=== PATIENT | female | born 1940 | race Caucasian/White ===

== ENCOUNTER → 2017-07-23 | Outpatient (CLI) | payer MEDICARE, OTHER ==
[~2017-07-23] MED LIST: ASPI81CH PO; Azor 5-20 MG T1 EACH PO; CEFU500T30 PO; CELECOXIB200 MG PO; CIPR500 PO; Cipro250 MG PO; DICL25ER PO; DULO60 PO; ERGO400 PO; FOLI400 PO; HEARTBURN RELI150 M1 PO; METO50ER PO; METO5A PO; Metoclopramide H5 MG PO; Nexium40 MG PO; OLME20 PO; OMEGA 3 KRILL PO; OXYB5 PO; Omeprazole20 M1 PO; Oxybutynin Chlo10 MG PO; Oxybutynin Chlo15 MG PO; PRAM.5 PO; PRAMIPEXOLE DIHY1 MG PO; PROC10 PO; PROM25 PO; PROP65 PO; VITAMIN B122500 MC1 PO; XARELTO15 MG PO
== END | disposition home or self-care (01) ==
LOC: LAB SHORT 07:47 → PLD 07:47
DX: D17.1 Benign lipomatous neoplasm of skin and subcutaneous tissue of trunk (principal); L72.0 Epidermal cyst
CPT/HCPCS: 88304

== ENCOUNTER → 2018-01-01 | Outpatient (CLI) | payer MEDICARE, OTHER ==
[~2018-01-01] MED LIST changes: -CEFU500T30 PO; -DICL25ER PO; -OXYB5 PO; -XARELTO15 MG PO
== END | disposition home or self-care (01) ==
LOC: PLD 12:37 → LAB SHORT 12:37
DX: D22.0 Melanocytic nevi of lip (principal); D48.5 Neoplasm of uncertain behavior of skin
CPT/HCPCS: 88305

== ENCOUNTER 2018-01-03 18:12 | Emergency (ER) | payer MEDICARE, OTHER ==
[~2018-01-03] VITALS: Ht 167.6 cm; Wt 90.7 kg
[~2018-01-03 18:12] MED LIST changes: -Oxybutynin Chlo15 MG PO; -PROM25 PO
[2018-01-03 18:42] LABS: BASOPHILS ABSOLUTE AUTO 0.04 K/mm3 (0.00-0.23); BASOPHILS PERCENT AUTO 0 % (0-2); EOSINOPHILS PERCENT AUTO 0 % (0-6); Hematocrit 42.2 % (33.0-51.0); Hemoglobin 13.9 g/dL (11.5-16.0); IMMATURE GRAN ABSOLUTE AUTO 0.03 K/mm3 (0.00-0.10); IMMATURE GRAN PERCENT AUTO 0 % (0-1); LYMPHOCYTES ABSOLUTE AUTO 1.77 K/mm3 (0.84-5.20); LYMPHOCYTES PERCENT AUTO 20 % (21-46); MONOCYTES ABSOLUTE AUTO 0.41 K/mm3 (0.16-1.47); MONOCYTES PERCENT AUTO 5 % (4-13); Mean Corpuscular HGB Conc 32.9 g/dL (31.5-36.5); Mean Corpuscular Volume 94 fL (80-100); Mean Platelet Volume 10.3 fL (9.1-12.4); NEUTROPHILS ABSOLUTE AUTO 6.84 K/mm3 (1.96-9.15); NEUTROPHILS PERCENT AUTO 75 % (41-73); Platelet Count 221 K/mm3 (150-400); RDW Coefficient Variation 12.8 % (11.7-14.2); RDW Standard Deviation 44.1 fL (35.1-46.3); Red Blood Cell Count 4.49 M/mm3 (3.80-5.20); White Blood Cell Count 9.09 K/mm3 (4.00-11.30)
[2018-01-03 18:54] LABS: Alanine Aminotransfer (ALT/SGP 40 U/L (12-78); Albumin, Blood 3.6 g/dL (3.4-5.0); Alk Phos 107 U/L (50-136); Anion Gap 12 mmol/L (6-16); Aspartate Aminotrans (AST/SGOT 23 U/L (12-37); Bilirubin, Total 0.6 mg/dL (0.1-1.0); Blood Urea Nitrogen 16 mg/dL (8-24); Bun/Creatinine Ratio 29.5 (12.0-20.0); CO2, Blood 24 mmol/L (21-32); Calcium, Blood 9.4 mg/dL (8.5-10.1); Chloride, Blood 106 mmol/L (98-108); Creatinine, Blood 0.54 mg/dL (0.40-1.00); Globulin, Blood 3.7 g/dL (2.2-4.0); Glomerular Filtration Rate >60 (60-); Glucose, Blood 157 mg/dL (70-99); Potassium, Blood 3.7 mmol/L (3.5-5.5); Sodium, Blood 142 mmol/L (136-145); Total Protein, Blood 7.3 g/dL (6.4-8.2)
[2018-01-03] MEDS ORDERED: Oxybutynin Chlo15 MG PO (21:35)
[2018-01-03] MEDS ORDERED: PROM25 PO (22:03)
== END 2018-01-03 22:18 | disposition home or self-care (01) ==
LOC: ER 18:12
PROVIDERS: Emergency Medicine
DX: R11.2 Nausea with vomiting, unspecified (principal); Z88.8 Allergy status to other drugs, medicaments and biological substances; Z88.5 Allergy status to narcotic agent; Z79.899 Other long term (current) drug therapy; Z79.82 Long term (current) use of aspirin; E66.9 Obesity, unspecified; I10 Essential (primary) hypertension; K21.9 Gastro-esophageal reflux disease without esophagitis; Z68.32 Body mass index [BMI] 32.0-32.9, adult
CPT/HCPCS: 80053; 85025; 96361; 96374; 96375; 99283; J2405; J2550; J7030

== ENCOUNTER → 2018-01-28 | Outpatient (CLI) | payer MEDICARE, OTHER ==
[~2018-01-28] MED LIST changes: +Oxybutynin Chlo15 MG PO; +PROM25 PO
== END | disposition home or self-care (01) ==
LOC: LAB SHORT 14:31 → PLD 14:31
DX: L72.0 Epidermal cyst (principal)
CPT/HCPCS: 88304

== ENCOUNTER 2018-02-10 13:46 | Inpatient (IN) | payer MEDICARE, OTHER ==
[~2018-02-10] VITALS: Ht 167.6 cm; Wt 87.4 kg
[2018-02-10] MEDS ORDERED: Azor 5-20 MG T1 EACH PO ×2 (14:04→18:31)
[2018-02-10] MEDS ORDERED: PRAM.5 PO (14:05)
[2018-02-10] MEDS ORDERED: OXYB5 PO (14:05)
[2018-02-10] MEDS ORDERED: DICL25ER PO (14:05)
[2018-02-10 14:10] LABS: BASOPHILS ABSOLUTE AUTO 0.05 K/mm3 (0.00-0.23); BASOPHILS PERCENT AUTO 1 % (0-2); EOSINOPHILS ABSOLUTE AUTO 0.12 K/mm3 (0.00-0.68); EOSINOPHILS PERCENT AUTO 1 % (0-6); Hematocrit 40.1 % (33.0-51.0); Hemoglobin 13.2 g/dL (11.5-16.0); IMMATURE GRAN ABSOLUTE AUTO 0.02 K/mm3 (0.00-0.10); IMMATURE GRAN PERCENT AUTO 0 % (0-1); LYMPHOCYTES ABSOLUTE AUTO 2.22 K/mm3 (0.84-5.20); LYMPHOCYTES PERCENT AUTO 24 % (21-46); MONOCYTES ABSOLUTE AUTO 0.67 K/mm3 (0.16-1.47); MONOCYTES PERCENT AUTO 7 % (4-13); Mean Corpuscular HGB 30.9 pg (26.0-34.0); Mean Corpuscular HGB Conc 32.9 g/dL (31.5-36.5); Mean Corpuscular Volume 94 fL (80-100); Mean Platelet Volume 10.5 fL (9.1-12.4); NEUTROPHILS ABSOLUTE AUTO 6.05 K/mm3 (1.96-9.15); NEUTROPHILS PERCENT AUTO 66 % (41-73); Platelet Count 197 K/mm3 (150-400); RDW Coefficient Variation 13.4 % (11.7-14.2); RDW Standard Deviation 45.9 fL (35.1-46.3); Red Blood Cell Count 4.27 M/mm3 (3.80-5.20); White Blood Cell Count 9.13 K/mm3 (4.00-11.30)
[2018-02-10 14:29] LABS: Alanine Aminotransfer (ALT/SGP 37 U/L (12-78); Albumin, Blood 3.5 g/dL (3.4-5.0); Albumin/Globulin Ratio 0.9 (0.8-1.8); Alk Phos 110 U/L (50-136); Anion Gap 11 mmol/L (6-16); Aspartate Aminotrans (AST/SGOT 22 U/L (12-37); Bilirubin, Total 0.7 mg/dL (0.1-1.0); Blood Urea Nitrogen 14 mg/dL (8-24); Bun/Creatinine Ratio 19.6 (12.0-20.0); CO2, Blood 23 mmol/L (21-32); Calcium, Blood 9.1 mg/dL (8.5-10.1); Chloride, Blood 108 mmol/L (98-108); Creatinine, Blood 0.72 mg/dL (0.40-1.00); Globulin, Blood 3.7 g/dL (2.2-4.0); Glomerular Filtration Rate >60 (60-); Glucose, Blood 111 mg/dL (70-99); Potassium, Blood 3.8 mmol/L (3.5-5.5); Sodium, Blood 142 mmol/L (136-145); Total Protein, Blood 7.2 g/dL (6.4-8.2)
[2018-02-10 17:46] LABS: International Normalized Ratio 1.04; Prothrombin Time Results 10.7 Sec (9.7-11.5)
[2018-02-10 19:21] LABS: Source, Urine Clean Catch
[2018-02-10 19:23] LABS: Bilirubin, Urine Neg (Neg); Blood, Urine 1+ (Neg); Glucose Qualitative, Urine Neg (Neg); Ketones, Urine Neg (Neg); Leukocyte Esterase, Urine 1+ (Neg); Nitrite, Urine Neg (Neg); Protein, Urine Neg (Neg); Urobilinogen, Urine NORM (Normal)
[2018-02-10 19:26] LABS: Appearance, Urine Clear (Clear); Color, Urine Yellow (P-Yellow)
[2018-02-10 19:29] LABS: Bacteria Many /hpf; Red Blood Cells, Urine 0-2 /hpf (0-2); Squamous Epithelial Cells Few /hpf (Few)
[2018-02-11 00:37] LABS: Hematocrit 36.5 % (33.0-51.0); Hemoglobin 12.2 g/dL (11.5-16.0); Mean Corpuscular HGB 31.3 pg (26.0-34.0); Mean Corpuscular HGB Conc 33.4 g/dL (31.5-36.5); Mean Corpuscular Volume 94 fL (80-100); Mean Platelet Volume 10.6 fL (9.1-12.4); Platelet Count 168 K/mm3 (150-400); RDW Coefficient Variation 13.5 % (11.7-14.2); RDW Standard Deviation 45.5 fL (35.1-46.3); White Blood Cell Count 7.58 K/mm3 (4.00-11.30)
[2018-02-11 15:14] LABS: International Normalized Ratio 1.07
[2018-02-13 04:21] LABS: Hematocrit 37.4 % (33.0-51.0); Hemoglobin 12.4 g/dL (11.5-16.0)
[2018-02-13] MEDS ORDERED: XARELTO15 MG PO (14:02)
[2018-02-13] MEDS ORDERED: CEFU500T30 PO (14:02)
== END 2018-02-13 14:45 | disposition home or self-care (01) | DRG 175 ==
LOC: ER 13:46 → PCU 17:23
PROVIDERS: Internal Medicine; Internal Medicine Gastroenterology; Nurse Practitioner Acute Care; Pharmacist; Physician Assistant
PROC: 0DJ08ZZ Inspection of Upper Intestinal Tract, Via Natural or Artificial Opening Endoscopic (ICD-10-PCS; principal; 2018-02-12 16:30)
DX: I26.99 Other pulmonary embolism without acute cor pulmonale (principal); J96.01 Acute respiratory failure with hypoxia; K92.0 Hematemesis; N39.0 Urinary tract infection, site not specified; I10 Essential (primary) hypertension; K21.9 Gastro-esophageal reflux disease without esophagitis; N32.81 Overactive bladder; N39.3 Stress incontinence (female) (male); K44.9 Diaphragmatic hernia without obstruction or gangrene; B96.20 Unspecified Escherichia coli [E. coli] as the cause of diseases classified elsewhere; Z79.899 Other long term (current) drug therapy; Z87.891 Personal history of nicotine dependence; Z90.2 Acquired absence of lung [part of]; Z88.8 Allergy status to other drugs, medicaments and biological substances; Z88.5 Allergy status to narcotic agent; Z98.84 Bariatric surgery status; Z85.118 Personal history of other malignant neoplasm of bronchus and lung; Z79.82 Long term (current) use of aspirin
CPT/HCPCS: 36415; 71046; 71260; 80053; 81001; 85014; 85018; 85025; 85027; 85610; 85730; 87077; 87086; 87186; 93005; 93010; 93306; 99285-25; J1644; J3480; J7120; Q9967

== ENCOUNTER 2019-01-31 17:04 | Emergency (ER) | payer MEDICARE, OTHER ==
[~2019-01-31] VITALS: Ht 167.6 cm; Wt 95.2 kg
[~2019-01-31 17:04] MED LIST changes: +CEFU500T30 PO; +DICL25ER PO; +OXYB5 PO; +XARELTO15 MG PO
[2019-01-31 17:41] LABS: BASOPHILS ABSOLUTE AUTO 0.03 K/mm3 (0.00-0.23); BASOPHILS PERCENT AUTO 0 % (0-2); EOSINOPHILS ABSOLUTE AUTO 0.06 K/mm3 (0.00-0.68); EOSINOPHILS PERCENT AUTO 1 % (0-6); Hematocrit 42.8 % (33.0-51.0); Hemoglobin 14.4 g/dL (11.5-16.0); IMMATURE GRAN ABSOLUTE AUTO 0.02 K/mm3 (0.00-0.10); IMMATURE GRAN PERCENT AUTO 0 % (0-1); LYMPHOCYTES ABSOLUTE AUTO 2.48 K/mm3 (0.84-5.20); LYMPHOCYTES PERCENT AUTO 30 % (21-46); MONOCYTES ABSOLUTE AUTO 0.59 K/mm3 (0.16-1.47); MONOCYTES PERCENT AUTO 7 % (4-13); Mean Corpuscular HGB 30.9 pg (26.0-34.0); Mean Corpuscular HGB Conc 33.6 g/dL (31.5-36.5); Mean Corpuscular Volume 92 fL (80-100); Mean Platelet Volume 10.4 fL (9.1-12.4); NEUTROPHILS ABSOLUTE AUTO 5.01 K/mm3 (1.96-9.15); NEUTROPHILS PERCENT AUTO 61 % (41-73); Platelet Count 242 K/mm3 (150-400); RDW Coefficient Variation 12.6 % (11.7-14.2); RDW Standard Deviation 42.6 fL (35.1-46.3); Red Blood Cell Count 4.66 M/mm3 (3.80-5.20); White Blood Cell Count 8.19 K/mm3 (4.00-11.30)
[2019-01-31 18:09] LABS: Alanine Aminotransfer (ALT/SGP 28 U/L (12-78); Albumin, Blood 3.5 g/dL (3.4-5.0); Albumin/Globulin Ratio 0.9 (0.8-1.8); Alk Phos 95 U/L (50-136); Anion Gap 8 mmol/L (6-16); Aspartate Aminotrans (AST/SGOT 17 U/L (12-37); Bilirubin, Total 0.8 mg/dL (0.1-1.0); Blood Urea Nitrogen 12 mg/dL (8-24); Bun/Creatinine Ratio 18.9 (12.0-20.0); CO2, Blood 24 mmol/L (21-32); Calcium, Blood 10.4 mg/dL (8.5-10.1); Chloride, Blood 102 mmol/L (98-108); Creatinine, Blood 0.63 mg/dL (0.40-1.00); Globulin, Blood 3.8 g/dL (2.2-4.0); Glomerular Filtration Rate >60 (60-); Glucose, Blood 134 mg/dL (70-99); Potassium, Blood 3.7 mmol/L (3.5-5.5); Sodium, Blood 134 mmol/L (136-145); Total Protein, Blood 7.3 g/dL (6.4-8.2)
[2019-01-31] MEDS ORDERED: Diclofenac Sodi50 MG (18:49)
[2019-01-31 19:19] LABS: Source, Urine Clean Catch
[2019-01-31 19:22] LABS: Appearance, Urine Cloudy (Clear); Bilirubin, Urine Neg (Neg); Blood, Urine 2+ (Neg); Color, Urine Yellow (P-Yellow); Glucose Qualitative, Urine Neg (Neg); Ketones, Urine Neg (Neg); Leukocyte Esterase, Urine 3+ (Neg); Nitrite, Urine Neg (Neg); Protein, Urine 2+ (Neg); Urobilinogen, Urine NORM (Normal)
[2019-01-31 19:28] LABS: Bacteria Many /hpf; Red Blood Cells, Urine 0-2 /hpf (0-2); Squamous Epithelial Cells Mod /hpf (Few); White Blood Cells, Urine 50-100 /hpf (0-5)
[2019-01-31] MEDS ORDERED: Omeprazole20 M1 PO (19:48)
[2019-01-31] MEDS ORDERED: Cephalexin500 M1 PO (19:48)
[2019-01-31] MEDS ORDERED: PROM25 PO (19:52)
[2019-02-13] MEDS ORDERED: OMEP20ER PO (14:18)
[2019-02-13] MEDS ORDERED: Metoclopramide H5 MG PO (14:18)
[2019-02-13] MEDS ORDERED: Azor 5-20 MG T1 EACH PO (14:19)
[2019-02-13] MEDS ORDERED: Mirapex1 MG PO (14:19)
[2019-02-13] MEDS ORDERED: Oxybutynin Chlo15 MG PO (14:19)
[2019-02-13] MEDS ORDERED: Diclofenac Pota50 MG PO (14:20)
[2019-02-13] MEDS ORDERED: Aspirin EC81 MG PO (14:20)
[2019-02-13] MEDS ORDERED: Omega 3 1,0001 EACH PO (14:20)
== END 2019-01-31 20:47 | disposition home or self-care (01) ==
LOC: ER 17:04
PROVIDERS: Physician Assistant
DX: N39.0 Urinary tract infection, site not specified (principal); K92.0 Hematemesis; I10 Essential (primary) hypertension; K21.9 Gastro-esophageal reflux disease without esophagitis; Z87.891 Personal history of nicotine dependence
CPT/HCPCS: 36415; 74176; 80053; 81001; 82272; 83605; 83690; 85025; 87077; 87086; 87186; 96361; 96365; 96375; 99284-25; C9113; J0696; J1200; J2550; J7030

== ENCOUNTER 2019-02-21 07:51 | Day surgery (SDC) | payer MEDICARE, OTHER ==
[~2019-02-21] VITALS: Ht 167.6 cm; Wt 97.8 kg
[~2019-02-21 07:51] MED LIST changes: +Aspirin EC81 MG PO; +Cephalexin500 M1 PO; +Diclofenac Pota50 MG PO; +Diclofenac Sodi50 MG; +Mirapex1 MG PO; +OMEP20ER PO; +Omega 3 1,0001 EACH PO
--- NOTE | 2019-02-21 08:41 | NUR ---
02/21/19 0841 VANDA FIELD 1 IV ATTEMPT BY IRA VEIN BLEW 2 IV ATTEMPT BY PARVIN SUCCESSFUL
--- NOTE | 2019-02-21 09:24 | NUR ---
02/21/19 0924 Julio Jiménez PROCEDURE ABORTED D/T FOOD IN STOMACH PER DR. BADILLO.
== END 2019-02-21 09:53 | disposition home or self-care (01) ==
LOC: ORSCSDS 07:51
PROVIDERS: Internal Medicine Gastroenterology
PROC: 0DJ08ZZ Inspection of Upper Intestinal Tract, Via Natural or Artificial Opening Endoscopic (ICD-10-PCS; principal; 2019-02-21 09:00)
DX: K92.0 Hematemesis (principal); K22.4 Dyskinesia of esophagus; R13.10 Dysphagia, unspecified; R10.9 Unspecified abdominal pain; R93.3 Abnormal findings on diagnostic imaging of other parts of digestive tract; Z86.711 Personal history of pulmonary embolism; I10 Essential (primary) hypertension; Z86.73 Personal history of transient ischemic attack (TIA), and cerebral infarction without residual deficits; Z87.891 Personal history of nicotine dependence; Z85.118 Personal history of other malignant neoplasm of bronchus and lung; Z79.82 Long term (current) use of aspirin; Z79.899 Other long term (current) drug therapy
CPT/HCPCS: J0461; J2405; J2704; J7120

== ENCOUNTER 2019-02-26 08:01 | Day surgery (SDC) | payer MEDICARE, OTHER ==
[~2019-02-26] VITALS: Ht 167.6 cm; Wt 97.8 kg
== END 2019-02-26 10:00 | disposition home or self-care (01) ==
LOC: ORSCSDS 08:01
PROVIDERS: Internal Medicine Gastroenterology
PROC: 0DB58ZX Excision of Esophagus, Via Natural or Artificial Opening Endoscopic, Diagnostic (ICD-10-PCS; principal; 2019-02-26 09:15)
PROC: 0DB98ZX Excision of Duodenum, Via Natural or Artificial Opening Endoscopic, Diagnostic (ICD-10-PCS; principal; 2019-02-26 09:15)
PROC: 0DB68ZX Excision of Stomach, Via Natural or Artificial Opening Endoscopic, Diagnostic (ICD-10-PCS; principal; 2019-02-26 09:15)
DX: K92.0 Hematemesis (principal); K22.70 Barrett's esophagus without dysplasia; K29.80 Duodenitis without bleeding; K44.9 Diaphragmatic hernia without obstruction or gangrene; R93.3 Abnormal findings on diagnostic imaging of other parts of digestive tract; Z86.711 Personal history of pulmonary embolism; I10 Essential (primary) hypertension; Z86.73 Personal history of transient ischemic attack (TIA), and cerebral infarction without residual deficits; Z87.891 Personal history of nicotine dependence
CPT/HCPCS: 88305; 88342; J0330; J0461; J2001; J2405; J2704; J2765; J7120

== ENCOUNTER → 2019-03-25 | Outpatient (CLI) | payer MEDICARE, OTHER | END | disposition home or self-care (01) | LOC: LAB SHORT 11:59 → LAB 11:59 | DX: R10.9 Unspecified abdominal pain (principal); N39.0 Urinary tract infection, site not specified | CPT/HCPCS: 87077; 87086; 87186 ==

== ENCOUNTER → 2019-08-08 | Outpatient (CLI) | payer MEDICARE, OTHER ==
[~2019-08-08] MED LIST changes: +CEPH500 PO; +Nitrofurantoin50 MG PO
== END | disposition home or self-care (01) ==
LOC: LAB SHORT 10:30 → LAB 10:30
DX: R82.79 Other abnormal findings on microbiological examination of urine (principal)
CPT/HCPCS: 87077; 87086; 87186

== ENCOUNTER → 2019-10-02 | Outpatient (CLI) | payer MEDICARE, OTHER | END | disposition home or self-care (01) | LOC: LAB 11:45 → LAB SHORT 11:45 | DX: N39.41 Urge incontinence (principal); R82.79 Other abnormal findings on microbiological examination of urine | CPT/HCPCS: 87077; 87086; 87186 ==

== ENCOUNTER 2020-04-24 00:57 | Inpatient (IN) | payer MEDICARE, OTHER ==
[~2020-04-24] VITALS: Ht 167.6 cm; Wt 91.7 kg
[~2020-04-24 00:57] MED LIST changes: +CEFU250T47 PO
[2020-04-24 01:28] LABS: BASOPHILS ABSOLUTE AUTO 0.03 K/mm3 (0.00-0.23); BASOPHILS PERCENT AUTO 0 % (0-2); EOSINOPHILS ABSOLUTE AUTO 0.08 K/mm3 (0.00-0.68); EOSINOPHILS PERCENT AUTO 1 % (0-6); Hematocrit 40.1 % (33.0-51.0); Hemoglobin 12.9 g/dL (11.5-16.0); IMMATURE GRAN ABSOLUTE AUTO 0.02 K/mm3 (0.00-0.10); IMMATURE GRAN PERCENT AUTO 0 % (0-1); LYMPHOCYTES ABSOLUTE AUTO 1.85 K/mm3 (0.84-5.20); LYMPHOCYTES PERCENT AUTO 26 % (21-46); MONOCYTES ABSOLUTE AUTO 0.52 K/mm3 (0.16-1.47); MONOCYTES PERCENT AUTO 7 % (4-13); Mean Corpuscular HGB Conc 32.2 g/dL (31.5-36.5); Mean Corpuscular Volume 96 fL (80-100); Mean Platelet Volume 10.1 fL (9.1-12.4); NEUTROPHILS ABSOLUTE AUTO 4.74 K/mm3 (1.96-9.15); NEUTROPHILS PERCENT AUTO 65 % (41-73); Platelet Count 225 K/mm3 (150-400); RDW Coefficient Variation 12.7 % (11.7-14.2); RDW Standard Deviation 45.2 fL (35.1-46.3); Red Blood Cell Count 4.16 M/mm3 (3.80-5.20); White Blood Cell Count 7.24 K/mm3 (4.00-11.30)
[2020-04-24 01:43] LABS: International Normalized Ratio 1.03
[2020-04-24 01:48] LABS: Alanine Aminotransfer (ALT/SGP 21 U/L (12-78); Albumin, Blood 3.4 g/dL (3.4-5.0); Alk Phos 86 U/L (50-136); Anion Gap 6 mmol/L (6-16); Aspartate Aminotrans (AST/SGOT 17 U/L (12-37); Bilirubin, Total 0.8 mg/dL (0.1-1.0); Blood Urea Nitrogen 10 mg/dL (8-24); Bun/Creatinine Ratio 17.9 (12.0-20.0); CO2, Blood 27 mmol/L (21-32); Calcium, Blood 9.8 mg/dL (8.5-10.1); Chloride, Blood 106 mmol/L (98-108); Creatinine, Blood 0.56 mg/dL (0.40-1.00); Globulin, Blood 3.5 g/dL (2.2-4.0); Glomerular Filtration Rate >60 (60-); Glucose, Blood 141 mg/dL (70-99); Potassium, Blood 3.8 mmol/L (3.5-5.5); Sodium, Blood 139 mmol/L (136-145); Total Protein, Blood 6.9 g/dL (6.4-8.2); Troponin I <0.015 ng/mL (0.000-0.040)
[2020-04-24 02:31] LABS: Source, Urine Clean Catch
[2020-04-24 02:33] LABS: Bilirubin, Urine Neg (Neg); Blood, Urine 2+ (Neg); Glucose Qualitative, Urine Neg (Neg); Ketones, Urine 2+ (Neg); Leukocyte Esterase, Urine 3+ (Neg); Nitrite, Urine Neg (Neg); Protein, Urine Neg (Neg); Specific Gravity, Urine 1.025 (1.003-1.022); Urobilinogen, Urine NORM (Normal)
[2020-04-24 02:37] LABS: Appearance, Urine Hazy (Clear); Color, Urine Pale Yellow (P-Yellow)
[2020-04-24 02:41] LABS: Red Blood Cells, Urine Rare /hpf (0-2); White Blood Cells, Urine TNTC /hpf (0-5)
[2020-04-24 02:42] LABS: Bacteria Many /hpf; Squamous Epithelial Cells Mod /hpf (Few)
[2020-04-24] MEDS ORDERED: ASPI325 PO (04:34)
[2020-04-24] MEDS ORDERED: ZINC15 PO (04:38)
[2020-04-24] MEDS ORDERED: Vitamin D2000 UNIT PO (04:38)
[2020-04-24] MEDS ORDERED: B-121000 MC3 PO (04:40)
[2020-04-24 07:21] LABS: BASOPHILS ABSOLUTE AUTO 0.03 K/mm3 (0.00-0.23); BASOPHILS PERCENT AUTO 0 % (0-2); EOSINOPHILS ABSOLUTE AUTO 0.05 K/mm3 (0.00-0.68); EOSINOPHILS PERCENT AUTO 1 % (0-6); Hematocrit 37.9 % (33.0-51.0); Hemoglobin 12.1 g/dL (11.5-16.0); IMMATURE GRAN ABSOLUTE AUTO 0.03 K/mm3 (0.00-0.10); IMMATURE GRAN PERCENT AUTO 0 % (0-1); LYMPHOCYTES ABSOLUTE AUTO 1.84 K/mm3 (0.84-5.20); LYMPHOCYTES PERCENT AUTO 27 % (21-46); MONOCYTES ABSOLUTE AUTO 0.51 K/mm3 (0.16-1.47); MONOCYTES PERCENT AUTO 7 % (4-13); Mean Corpuscular HGB 31.1 pg (26.0-34.0); Mean Corpuscular HGB Conc 31.9 g/dL (31.5-36.5); Mean Corpuscular Volume 97 fL (80-100); NEUTROPHILS ABSOLUTE AUTO 4.46 K/mm3 (1.96-9.15); NEUTROPHILS PERCENT AUTO 65 % (41-73); Platelet Count 208 K/mm3 (150-400); RDW Coefficient Variation 12.9 % (11.7-14.2); RDW Standard Deviation 46.1 fL (35.1-46.3); Red Blood Cell Count 3.89 M/mm3 (3.80-5.20); White Blood Cell Count 6.92 K/mm3 (4.00-11.30)
[2020-04-24 07:39] LABS: Alanine Aminotransfer (ALT/SGP 20 U/L (12-78); Albumin/Globulin Ratio 0.9 (0.8-1.8); Alk Phos 78 U/L (50-136); Anion Gap 4 mmol/L (6-16); Aspartate Aminotrans (AST/SGOT 17 U/L (12-37); Bilirubin, Total 0.6 mg/dL (0.1-1.0); Blood Urea Nitrogen 10 mg/dL (8-24); Bun/Creatinine Ratio 18.1 (12.0-20.0); CO2, Blood 29 mmol/L (21-32); Calcium, Blood 9.1 mg/dL (8.5-10.1); Chloride, Blood 107 mmol/L (98-108); Creatinine, Blood 0.55 mg/dL (0.40-1.00); Globulin, Blood 3.4 g/dL (2.2-4.0); Glomerular Filtration Rate >60 (60-); Glucose, Blood 91 mg/dL (70-99); Potassium, Blood 3.8 mmol/L (3.5-5.5); Sodium, Blood 140 mmol/L (136-145); Total Protein, Blood 6.4 g/dL (6.4-8.2)
--- NOTE | 2020-04-24 07:45 | NUR ---
IRRIGATION FLUME LAYER SUMMARY Patient arrived to room 310 via wheelchair and was able to stand and step over to bed without difficulty. No further emesis after arrival to floor. No complaint of discomfort. Patient slept most of morning after admission. Tele reveals Sinus Rhythm in the 70's
[2020-04-24 13:18] LABS: Hematocrit 35.3 % (33.0-51.0); Hemoglobin 11.3 g/dL (11.5-16.0)
[2020-04-24] MEDS ORDERED: AMOX500 PO (14:27)
--- NOTE | 2020-04-24 14:49 | NUR ---
discharge summary patient is pelasant, alert and oriented. denies any concern at the time. iv removed. denies any pain or discomfort. reports that she wanted [facility] medications to [facility]. medications sent to pharmacy of choice. patient's spouse awaiting her in the car. taken by wheelchair to the car by [facility].
--- NOTE | 2020-04-24 15:27 | NUR ---
PT DISCHARGED FROM THE UNIT. IV REMOVED. DISCHARGE INSTRUCTIONS REVIEWED. MEDICATIONS FAXED TO PHARMACY. PT LEFT UNIT VIA WHEEL CHAIR WITH
== END 2020-04-24 15:00 | disposition home or self-care (01) | DRG 378 ==
LOC: ER 00:57 → MEDS 02:50
PROVIDERS: Emergency Medicine; ADMIT Internal Medicine
PROC: 3E0234Z Introduction of Serum, Toxoid and Vaccine into Muscle, Percutaneous Approach (ICD-10-PCS; principal; 2020-04-24)
DX: K92.2 Gastrointestinal hemorrhage, unspecified (principal); N39.0 Urinary tract infection, site not specified; R11.10 Vomiting, unspecified; Z23 Encounter for immunization; K21.9 Gastro-esophageal reflux disease without esophagitis; I10 Essential (primary) hypertension; M19.90 Unspecified osteoarthritis, unspecified site; Z86.718 Personal history of other venous thrombosis and embolism; Z88.8 Allergy status to other drugs, medicaments and biological substances; Z79.82 Long term (current) use of aspirin; Z87.891 Personal history of nicotine dependence; Z86.73 Personal history of transient ischemic attack (TIA), and cerebral infarction without residual deficits; Z87.440 Personal history of urinary (tract) infections; Z85.118 Personal history of other malignant neoplasm of bronchus and lung
CPT/HCPCS: 36415; 80053; 81001; 83605; 84484; 85014; 85018; 85025; 85610; 86850; 86900; 86901; 93005; 93010; C9113; J0696; J2405; J7030; Q2038

== ENCOUNTER → 2020-06-01 | Outpatient (CLI) | payer MEDICARE, OTHER ==
[~2020-06-01] MED LIST changes: +AMOX500 PO; +ASPI325 PO; +B-121000 MC3 PO; +MAGCIT300 PO; +Vitamin D2000 UNIT PO; +XARELTO20 MG PO; +ZINC15 PO
== END | disposition home or self-care (01) ==
LOC: LAB 15:33
DX: N39.0 Urinary tract infection, site not specified (principal); R31.9 Hematuria, unspecified; R30.0 Dysuria
CPT/HCPCS: 87077; 87086; 87186

== ENCOUNTER 2020-07-20 10:07 | Emergency (ER) | payer MEDICARE, OTHER ==
[~2020-07-20] VITALS: Ht 167.6 cm; Wt 90.7 kg
[~2020-07-20 10:07] MED LIST changes: -MAGCIT300 PO; -XARELTO20 MG PO
[2020-07-20] MEDS ORDERED: XARELTO20 MG PO (10:18)
[2020-07-20 10:36] LABS: BASOPHILS ABSOLUTE AUTO 0.03 K/mm3 (0.00-0.23); BASOPHILS PERCENT AUTO 1 % (0-2); EOSINOPHILS ABSOLUTE AUTO 0.07 K/mm3 (0.00-0.68); EOSINOPHILS PERCENT AUTO 1 % (0-6); Hemoglobin 13.2 g/dL (11.5-16.0); IMMATURE GRAN ABSOLUTE AUTO 0.02 K/mm3 (0.00-0.10); IMMATURE GRAN PERCENT AUTO 0 % (0-1); LYMPHOCYTES ABSOLUTE AUTO 1.85 K/mm3 (0.84-5.20); LYMPHOCYTES PERCENT AUTO 30 % (21-46); MONOCYTES ABSOLUTE AUTO 0.44 K/mm3 (0.16-1.47); MONOCYTES PERCENT AUTO 7 % (4-13); Mean Corpuscular HGB 30.5 pg (26.0-34.0); Mean Corpuscular HGB Conc 32.2 g/dL (31.5-36.5); Mean Corpuscular Volume 95 fL (80-100); Mean Platelet Volume 9.7 fL (9.1-12.4); NEUTROPHILS PERCENT AUTO 61 % (41-73); Platelet Count 191 K/mm3 (150-400); RDW Coefficient Variation 13.4 % (11.7-14.2); RDW Standard Deviation 47.1 fL (35.1-46.3); Red Blood Cell Count 4.33 M/mm3 (3.80-5.20); White Blood Cell Count 6.21 K/mm3 (4.00-11.30)
[2020-07-20 10:50] LABS: International Normalized Ratio 1.69; Prothrombin Time Results 17.6 Sec (9.7-11.5)
[2020-07-20 10:56] LABS: Alanine Aminotransfer (ALT/SGP 22 U/L (12-78); Albumin, Blood 3.1 g/dL (3.4-5.0); Albumin/Globulin Ratio 0.9 (0.8-1.8); Alk Phos 78 U/L (50-136); Anion Gap 7 mmol/L (6-16); Aspartate Aminotrans (AST/SGOT 8 U/L (12-37); Bilirubin, Total 0.6 mg/dL (0.1-1.0); Blood Urea Nitrogen 12 mg/dL (8-24); Bun/Creatinine Ratio 20.5 (12.0-20.0); CO2, Blood 25 mmol/L (21-32); Calcium, Blood 9.1 mg/dL (8.5-10.1); Chloride, Blood 110 mmol/L (98-108); Creatinine, Blood 0.58 mg/dL (0.40-1.00); Globulin, Blood 3.4 g/dL (2.2-4.0); Glomerular Filtration Rate >60 (60-); Glucose, Blood 117 mg/dL (70-99); Potassium, Blood 3.7 mmol/L (3.5-5.5); Sodium, Blood 142 mmol/L (136-145); Total Protein, Blood 6.5 g/dL (6.4-8.2)
== END 2020-07-20 12:13 | disposition home or self-care (01) ==
LOC: ER 10:07
PROVIDERS: Emergency Medicine
DX: G43.109 Migraine with aura, not intractable, without status migrainosus (principal); K21.9 Gastro-esophageal reflux disease without esophagitis; Z86.73 Personal history of transient ischemic attack (TIA), and cerebral infarction without residual deficits; Z79.899 Other long term (current) drug therapy; Z86.711 Personal history of pulmonary embolism; Z88.5 Allergy status to narcotic agent; Z88.8 Allergy status to other drugs, medicaments and biological substances; Z79.01 Long term (current) use of anticoagulants
CPT/HCPCS: 70450; 80053; 85025; 85610; 85730; 93005; 93010; 99284-25

== ENCOUNTER → 2020-08-23 | Outpatient (CLI) | payer MEDICARE, OTHER ==
[~2020-08-23] MED LIST changes: +MAGCIT300 PO; +XARELTO20 MG PO
== END ==
LOC: LAB SHORT 08:25 → PLD 08:25
DX: D48.5 Neoplasm of uncertain behavior of skin (principal); Z88.6 Allergy status to analgesic agent; Z88.5 Allergy status to narcotic agent; Z88.8 Allergy status to other drugs, medicaments and biological substances
CPT/HCPCS: 88304; 88311

== ENCOUNTER 2020-10-24 10:48 | Emergency (ER) | payer MEDICARE, OTHER ==
[~2020-10-24] VITALS: Ht 172.7 cm; Wt 83.9 kg
[~2020-10-24 10:48] MED LIST changes: -MAGCIT300 PO
[2020-10-24] MEDS ORDERED: MAGCIT300 PO (11:58)
== END 2020-10-24 12:20 | disposition home or self-care (01) ==
LOC: ER 10:48
DX: K59.00 Constipation, unspecified (principal); Z88.8 Allergy status to other drugs, medicaments and biological substances; Z88.5 Allergy status to narcotic agent; Z88.6 Allergy status to analgesic agent; K21.9 Gastro-esophageal reflux disease without esophagitis
CPT/HCPCS: 74176; 99284-25

== ENCOUNTER → 2020-11-08 | Outpatient (CLI) | payer MEDICARE, OTHER ==
[~2020-11-08] MED LIST changes: +MAGCIT300 PO
== END | disposition home or self-care (01) ==
LOC: LAB SHORT 08:33 → LAB 08:33
DX: D48.5 Neoplasm of uncertain behavior of skin (principal)
CPT/HCPCS: 88305

== ENCOUNTER → 2021-04-21 | Outpatient (CLI) | payer MEDICARE, OTHER | END | disposition home or self-care (01) | LOC: LAB SHORT 11:50 → LAB 11:50 | DX: N30.00 Acute cystitis without hematuria (principal); R11.0 Nausea | CPT/HCPCS: 87077; 87086; 87186 ==

== ENCOUNTER 2021-05-04 19:34 | Emergency (ER) | payer MEDICARE, OTHER ==
[~2021-05-04] VITALS: Ht 167.6 cm; Wt 83.9 kg
[2021-05-04 20:35] LABS: Appearance, Urine Hazy (Clear); Bilirubin, Urine Neg (Neg); Blood, Urine 2+ (Neg); Color, Urine Yellow (P-Yellow); Glucose Qualitative, Urine Neg (Neg); Ketones, Urine 1+ (Neg); Leukocyte Esterase, Urine 3+ (Neg); Nitrite, Urine Pos (Neg); Protein, Urine 1+ (Neg); Specific Gravity, Urine 1.025 (1.003-1.022); Urobilinogen, Urine NORM (Normal)
[2021-05-04 20:41] LABS: BASOPHILS ABSOLUTE AUTO 0.04 K/mm3 (0.00-0.23); BASOPHILS PERCENT AUTO 1 % (0-2); EOSINOPHILS ABSOLUTE AUTO 0.02 K/mm3 (0.00-0.68); EOSINOPHILS PERCENT AUTO 0 % (0-6); Hematocrit 37.2 % (33.0-51.0); Hemoglobin 12.4 g/dL (11.5-16.0); IMMATURE GRAN ABSOLUTE AUTO 0.02 K/mm3 (0.00-0.10); IMMATURE GRAN PERCENT AUTO 0 % (0-1); LYMPHOCYTES ABSOLUTE AUTO 1.11 K/mm3 (0.84-5.20); LYMPHOCYTES PERCENT AUTO 16 % (21-46); MONOCYTES ABSOLUTE AUTO 0.47 K/mm3 (0.16-1.47); MONOCYTES PERCENT AUTO 7 % (4-13); Mean Corpuscular HGB Conc 33.3 g/dL (31.5-36.5); Mean Corpuscular Volume 93 fL (80-100); Mean Platelet Volume 9.8 fL (9.1-12.4); NEUTROPHILS ABSOLUTE AUTO 5.38 K/mm3 (1.96-9.15); NEUTROPHILS PERCENT AUTO 76 % (41-73); Platelet Count 223 K/mm3 (150-400); RDW Coefficient Variation 12.5 % (11.7-14.2); RDW Standard Deviation 43.5 fL (35.1-46.3); White Blood Cell Count 7.04 K/mm3 (4.00-11.30)
[2021-05-04 20:58] LABS: Alanine Aminotransfer (ALT/SGP 20 U/L (12-78); Albumin, Blood 3.3 g/dL (3.4-5.0); Albumin/Globulin Ratio 0.9 (0.8-1.8); Alk Phos 98 U/L (50-136); Anion Gap 6 mmol/L (6-16); Aspartate Aminotrans (AST/SGOT 18 U/L (12-37); Bilirubin, Total 0.5 mg/dL (0.1-1.0); Blood Urea Nitrogen 20 mg/dL (8-24); Bun/Creatinine Ratio 32.6 (12.0-20.0); CO2, Blood 26 mmol/L (21-32); Calcium, Blood 9.5 mg/dL (8.5-10.1); Chloride, Blood 105 mmol/L (98-108); Creatinine, Blood 0.61 mg/dL (0.40-1.00); Globulin, Blood 3.5 g/dL (2.2-4.0); Glomerular Filtration Rate >60 (60-); Glucose, Blood 133 mg/dL (70-99); Potassium, Blood 3.9 mmol/L (3.5-5.5); Sodium, Blood 137 mmol/L (136-145); Total Protein, Blood 6.8 g/dL (6.4-8.2)
[2021-05-04 20:59] LABS: Bacteria Many /hpf; Red Blood Cells, Urine 0-2 /hpf (0-2); Squamous Epithelial Cells Mod /hpf (Few)
[2021-05-04 21:03] LABS: Source, Urine Clean Catch
== END 2021-05-04 23:58 | disposition home or self-care (01) ==
LOC: ER 19:34
PROVIDERS: Physician Assistant
DX: N39.0 Urinary tract infection, site not specified (principal); F41.9 Anxiety disorder, unspecified; T47.2X5A Adverse effect of stimulant laxatives, initial encounter; Z88.5 Allergy status to narcotic agent; Z88.8 Allergy status to other drugs, medicaments and biological substances; Z79.899 Other long term (current) drug therapy; G43.909 Migraine, unspecified, not intractable, without status migrainosus; K21.9 Gastro-esophageal reflux disease without esophagitis; M19.90 Unspecified osteoarthritis, unspecified site; Z86.711 Personal history of pulmonary embolism; Z86.73 Personal history of transient ischemic attack (TIA), and cerebral infarction without residual deficits
CPT/HCPCS: 36415; 80053; 81001; 85025; 87077; 87086; 87186; 93005; 93010; 96365; 96375; 99284-25; J0696; J2060; J7030

== ENCOUNTER → 2021-06-07 | Outpatient (CLI) | payer MEDICARE, OTHER | END | disposition home or self-care (01) | LOC: LAB 12:28 → LAB SHORT 12:28 | DX: N39.0 Urinary tract infection, site not specified (principal) | CPT/HCPCS: 87077; 87086; 87186 ==

== ENCOUNTER 2021-09-15 09:15 | Emergency (ER) | payer MEDICARE, OTHER ==
[~2021-09-15] VITALS: Ht 167.6 cm; Wt 83.5 kg
== END 2021-09-15 11:26 | disposition home or self-care (01) ==
LOC: ER 09:15
DX: F41.9 Anxiety disorder, unspecified (principal); T48.6X5A Adverse effect of antiasthmatics, initial encounter; K21.9 Gastro-esophageal reflux disease without esophagitis; Z79.899 Other long term (current) drug therapy; Z88.5 Allergy status to narcotic agent; Z88.8 Allergy status to other drugs, medicaments and biological substances
CPT/HCPCS: 93005; 93010; 96374; 99283-25; J2060

== ENCOUNTER 2022-02-13 08:56 | Day surgery (SDC) | payer MEDICARE, OTHER ==
--- NOTE | 2022-02-13 10:19 | NUR ---
PT PREPPED FOR CTA IN IMAGING PT PREP ROOM PER PROTOCOL, 20G IV STARTED X 1, PT CRISSY WELL. CALCIUM SCORING > 400, REST OF CTA ABORTED PER RADIOLOGIST, PT VS WNL, 20G IV DC'D INTACT, PT DRESSED, AMBULATES WELL OUT OF IMAGING UNIT. SINUS 60-70'S
== END 2022-02-13 22:59 | disposition home or self-care (01) ==
LOC: CT 08:56
DX: I25.10 Atherosclerotic heart disease of native coronary artery without angina pectoris (principal); I10 Essential (primary) hypertension; Z86.73 Personal history of transient ischemic attack (TIA), and cerebral infarction without residual deficits
CPT/HCPCS: 75571

== ENCOUNTER 2022-02-23 16:01 | Emergency (ER) | payer MEDICARE, OTHER ==
[~2022-02-23] VITALS: Ht 177.8 cm; Wt 83.9 kg
== END 2022-02-23 18:04 | disposition home or self-care (01) ==
LOC: ER 16:01
DX: G43.909 Migraine, unspecified, not intractable, without status migrainosus (principal); Z86.711 Personal history of pulmonary embolism; Z86.73 Personal history of transient ischemic attack (TIA), and cerebral infarction without residual deficits; Z79.899 Other long term (current) drug therapy; Z88.5 Allergy status to narcotic agent; Z88.8 Allergy status to other drugs, medicaments and biological substances; Z79.01 Long term (current) use of anticoagulants
CPT/HCPCS: 36415; J1200; J1885; J2765; J7030

== ENCOUNTER 2022-03-01 08:24 | Observation (INO) | payer MEDICARE, OTHER ==
[~2022-03-01] VITALS: Ht 167.6 cm; Wt 82.5 kg
[2022-03-01 09:14] LABS: BASOPHILS ABSOLUTE AUTO 0.05 K/mm3 (0.00-0.23); BASOPHILS PERCENT AUTO 1 % (0-2); EOSINOPHILS ABSOLUTE AUTO 0.14 K/mm3 (0.00-0.68); EOSINOPHILS PERCENT AUTO 2 % (0-6); Hematocrit 40.4 % (33.0-51.0); Hemoglobin 13.3 g/dL (11.5-16.0); IMMATURE GRAN ABSOLUTE AUTO 0.01 K/mm3 (0.00-0.10); IMMATURE GRAN PERCENT AUTO 0 % (0-1); LYMPHOCYTES ABSOLUTE AUTO 3.53 K/mm3 (0.84-5.20); LYMPHOCYTES PERCENT AUTO 46 % (21-46); MONOCYTES ABSOLUTE AUTO 0.57 K/mm3 (0.16-1.47); MONOCYTES PERCENT AUTO 8 % (4-13); Mean Corpuscular HGB 30.4 pg (26.0-34.0); Mean Corpuscular HGB Conc 32.9 g/dL (31.5-36.5); Mean Corpuscular Volume 92 fL (80-100); Mean Platelet Volume 10.3 fL (9.1-12.4); NEUTROPHILS ABSOLUTE AUTO 3.33 K/mm3 (1.96-9.15); NEUTROPHILS PERCENT AUTO 44 % (41-73); Platelet Count 232 K/mm3 (150-400); RDW Coefficient Variation 12.7 % (11.7-14.2); RDW Standard Deviation 42.9 fL (35.1-46.3); Red Blood Cell Count 4.38 M/mm3 (3.80-5.20); White Blood Cell Count 7.63 K/mm3 (4.00-11.30)
[2022-03-01 09:31] LABS: Albumin, Blood 3.5 g/dL (3.4-5.0); Bilirubin, Total 0.6 mg/dL (0.1-1.0); Bun/Creatinine Ratio 26.1 (12.0-20.0); Calcium, Blood 10.3 mg/dL (8.5-10.1); Creatinine, Blood 0.69 mg/dL (0.40-1.00); Globulin, Blood 3.5 g/dL (2.2-4.0); Potassium, Blood 3.8 mmol/L (3.5-5.5)
[2022-03-01 09:46] LABS: Ethanol (Alcohol), Blood, Med <3 mg/dL; Magnesium, Blood 2.3 mg/dL (1.6-2.4); Prolactin 40.1 ng/mL (2.74-19.64)
[2022-03-01 09:54] LABS: Source, Urine Straight Cath
[2022-03-01 10:09] LABS: Appearance, Urine Hazy (Clear); Bilirubin, Urine Neg (Neg); Blood, Urine 1+ (Neg); Color, Urine Yellow (P-Yellow); Glucose Qualitative, Urine Neg (Neg); Ketones, Urine Neg (Neg); Leukocyte Esterase, Urine 1+ (Neg); Nitrite, Urine Neg (Neg); Protein, Urine Neg (Neg); Urobilinogen, Urine NORM (Normal)
[2022-03-01 10:18] LABS: Influenza A, PCR NEGATIVE (NEGATIVE); Influenza B, PCR NEGATIVE (NEGATIVE); Resp Syncytial Virus, PCR NEGATIVE (NEGATIVE); SARS-Cov-2 (COVID-19) PCR, MMC NEGATIVE (NEGATIVE)
[2022-03-01 10:31] LABS: Bacteria Many /hpf; Red Blood Cells, Urine 0-2 /hpf (0-2); Squamous Epithelial Cells Rare /hpf (Few)
[2022-03-01 10:33] LABS: Base Excess Venous 3.5 mmol/L; Bicarbonate Venous 26.9 mmol/L (24.0-30.0); PCO2 Venous 37.9 mmHg (38-42); pH Blood Venous 7.47 (7.34-7.37)
--- NOTE | 2022-03-01 13:54 | NUR ---
ADMISSON NOTE RECEIVED REPORT FROM ER, PT SHORTLY AFTER ARRIVED IN ROOM 330. PT'S VSS STABLE AND COMPARABLE TO HOW THEY WERE IN THE ER. BP IS ELEVATED AND PT COMPLAINS OF HEADACHE. MD FULLY AWARE OF PT'S CONDITION. PT MAINTAINS SPO2 >94% ON RA WITH NO SOB OR DYSPNEA NOTED. NADN UPON ARRIVAL. SEE ADMISSION ASSESSMENT FOR MORE DETAILS
--- NOTE | 2022-03-01 16:05 | NUR ---
SPOKE WITH CARLOS A RAPP IN THE ED ABOUT PT'S FLUID ORDER REGARDING THE RATE OF 200ML/HR WELL THE AMOUNT OF FLUIDS. PT HAS BEEN HAVING FREQUENT VOIDS WELL INCREASED BP SINCE HER ADMISSION. TAMELA WANTED THE ORDER TO BE LEFT UNCHANGED. WILL CONTINUE TO MONITOR THE PT.
--- NOTE | 2022-03-01 17:58 | NUR ---
SHIFT SUMMARY PT IS A/Ox3, BUT STRUGGLES TO FORMULATE SENTENCES FOR SHE RESPONDS TO YES/NO QUESTIONS BEST. PT HAS BEEN VERY TIRED SINCE HER ADMISSION FOR SHE HAS TAKEN FREQUENT NAPS T/O THE SHIFT. HOWEVER PT IS QUICKLY AROUSABLE WITH VERBAL AND TACTILE STIMULI. PT MAINAINS SPO2 >94% ON RA WITH NO SIGNS OF SOB OR DYSPNEA NOTED. PT STILL REPORTS A CONSTANT DULL HEADACHE WITH NO CP OR PRESSURE NOTED. BP REMAINS ELEVATED T/O THE SHIF, BUT HER HR IS STABLE. PT HAS BEEN UP FREQUENTLY TO VOID CLOUDY YELLOW URINE WITH A 1-2 ASSIST. FAMILY IN ROOM AND ACTIVELY PARTICIPATE IN PATIENT CARE. POSSIBLE EEG IN THE AM 03/02/22 WITH A NEUROLOGY CONSULT WITH [facility] IN THE ER OCCURED TODAY. INITIAL IMPRESSIONS OF MRI AND CT APPEAR TO BE INSIGNIFICANT. CESIA, VSAlesia T/O MY SHIFT
[2022-03-02] MEDS ORDERED: BUTALB-ACETAMI1 EAC5 PO (00:16)
[2022-03-02] MEDS ORDERED: PLAVIX75 MG PO (00:16)
--- NOTE | 2022-03-02 05:46 | NUR ---
81 year old Female with AMS hx of lung CA with lt lobectomy remote admitted with seizure precautions complex migrane has intermittant severe 10/10 headache frontal. She had slept beginning of shift with DTR at bedide & awoke around midnight & was alert & oriented & anb to BR with stady gait. Ate snack took amt amt of liquids then back to bed. Denied headache at that time
--- NOTE | 2022-03-02 05:52 | NUR ---
PT then woke up around 0230 disoriented nauseated & complaining of severe frontal headache. Fentanyl 25 mcg gien as well as zofran. While I was with PT she had about 60 seconds of rt ue tonic clonic movement which ended with fine tremors. She eventually had around 100 ml emisis of dark liquid. Resting now but when asked still has headache. Fall & seizure precautions.
--- NOTE | 2022-03-02 07:00 | NUR ---
DR LACY updated on coffe ground emisis headache htn. HX of all these . PT states recent dc of antihypertensives prior to migrane headache. Protonix 40 mg IV ordered daily. Rechecked vital signs with improved hyperention but diastolic BP continues over 100. 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 PT says she had check for cancer around 6 months ago post lung cancer and is unsure if she is in remission or not?
[2022-03-02 09:24] LABS: Hematocrit 42.5 % (33.0-51.0); Hemoglobin 13.8 g/dL (11.5-16.0); Mean Corpuscular HGB 30.5 pg (26.0-34.0); Mean Corpuscular HGB Conc 32.5 g/dL (31.5-36.5); Mean Corpuscular Volume 94 fL (80-100); Mean Platelet Volume 10.5 fL (9.1-12.4); Platelet Count 216 K/mm3 (150-400); RDW Coefficient Variation 12.7 % (11.7-14.2); Red Blood Cell Count 4.52 M/mm3 (3.80-5.20); White Blood Cell Count 9.15 K/mm3 (4.00-11.30)
[2022-03-02 10:12] LABS: Prolactin 6.4 ng/mL (2.74-19.64)
[2022-03-02 10:13] LABS: Albumin, Blood 3.5 g/dL (3.4-5.0); Anion Gap 5 mmol/L (6-16); Blood Urea Nitrogen 13 mg/dL (8-24); Bun/Creatinine Ratio 22.3 (12.0-20.0); CO2, Blood 27 mmol/L (21-32); Calcium, Blood 9.6 mg/dL (8.5-10.1); Chloride, Blood 105 mmol/L (98-108); Creatinine, Blood 0.58 mg/dL (0.40-1.00); Glomerular Filtration Rate 92 (60-); Glucose, Blood 121 mg/dL (70-99); Phosphorus, Blood 2.2 mg/dL (2.5-4.9); Potassium, Blood 3.8 mmol/L (3.5-5.5); Sodium, Blood 137 mmol/L (136-145)
--- NOTE | 2022-03-02 17:42 | NUR ---
SHIFT SUMMARY NO ACUTE CHANGES DURING SHIFT. PT ALERT AND ORIENTED, FOLLOWS COMMANDS. CONTINUED NAUSEA AND MIGRAINE. PRN MEDICATIONS ADMINISTERED, MINIMAL RELIEF. EEG COMPLETED TODAY. FAMILY AT BEDSIDE. CALL LIGHT WITHIN REACH.
--- NOTE | 2022-03-03 04:36 | NUR ---
SHIFT SUMMARY AOX4. VSS. TELE NSR HR 63. DENIES N/V, DYSPNEA, PAIN, OR RIVERA DURING INITAL ASSESSMENT. WITHIN 5 MIN LATER PT STATED SHE WAS HAVING DIFFICULTY SEEING & HER VISION WAS BLURRY. STATES THIS HAPPENED BEFORE & CAN SEE BETTER IF SHE CLOSES 1 EYE. MEDICATED c IMITREX & BY THE TIME MEDICATION RECIEVED FROM PHARMACY PT REPORTED 6/10 HEADACHE. PTS VISION CLEARED UP BY THE TIME HEADACHE STARTED. ABLE TO REST WELL T/O NIGHT W/O FURTHER PAIN AFTER RECIEVING MEDICATION, & NO FURTHER VISION CHANGES REPORTED. CALL LIGHT IN REACH & PT ABLE TO MAKE NEEDS KNOWN.
[2022-03-03] MEDS ORDERED: Aspir 8181 MG PO (13:44)
[2022-03-03] MEDS ORDERED: SUMA25 PO (13:46)
[2022-03-03] MEDS ORDERED: PROP10 PO (13:46)
== END 2022-03-03 14:06 | disposition home or self-care (01) ==
LOC: ER 08:24 → MEDS 08:25
PROVIDERS: Emergency Medicine; Nurse Practitioner Acute Care; Student in an Organized Health Care Education/Training Program; ADMIT Internal Medicine
DX: G43.809 Other migraine, not intractable, without status migrainosus (principal); I10 Essential (primary) hypertension; G25.81 Restless legs syndrome; Z86.73 Personal history of transient ischemic attack (TIA), and cerebral infarction without residual deficits; Z86.711 Personal history of pulmonary embolism; Z79.01 Long term (current) use of anticoagulants; Z88.5 Allergy status to narcotic agent; G92.9 Unspecified toxic encephalopathy; K21.00 Gastro-esophageal reflux disease with esophagitis, without bleeding; Z85.118 Personal history of other malignant neoplasm of bronchus and lung; Z20.822 Contact with and (suspected) exposure to COVID-19
CPT/HCPCS: 0241U; 36415; 70450; 70551; 80053; 80069; 81001; 82803; 82947; 83735; 84146; 85025; 85027; 87077; 87086; 87186; 93005; 93010; 94760; 95819; 96361; 96365; 96366; 96372; 96375; 96376; 99291-25; A9270; C9113; G0378; G0480; J1200; J1650; J1885; J2250; J2405; J2765; J3010; J3030; J3475; J7030

== ENCOUNTER 2022-05-04 08:52 | Day surgery (SDC) | payer MEDICARE, OTHER ==
[~2022-05-04] VITALS: Ht 167.6 cm; Wt 85.0 kg
[~2022-05-04 08:52] MED LIST changes: +AMIT25 PO; +Aspir 8181 MG PO; +BUTALB-ACETAMI1 EAC5 PO; +OMEGA-3 FISH O1 EAC6 PO; +PLAVIX75 MG PO; +PROP10 PO; +ROSU5 PO; +SUMA25 PO; +THERA-D2000 UNIT PO; +TOPROL XL25 MG PO
--- NOTE | 2022-05-04 11:45 | NUR ---
PT ARRIVES TO [facility] WITH 2 R RADIAL TR BANDS IN PLACE. WHEN ASSESSING TR BANDS, HEMATOMA NOTED DISTAL TO TR BAND. MANUAL PRESSURE APPLIED. PROXIMAL TR BAND WAS REMOVED. SOFT, TENDER BRUSIING NOTED. PRESSURE DSG APPLIED TO PROX AND DISTAL TR BAND PER DR OVALLE. VSS. NADAbigail. WILL CONTINUE TO MONITOR.
--- NOTE | 2022-05-04 12:20 | NUR ---
PRESSURE DSG REMOVED FROM R RADIAL SITES. TR BAND IN PLACE. BRUISING NOTED TO BOTH SIDES OF TR BAND/ SOFT AND TENDER. NO BLEEDING NOTED. VSS.
--- NOTE | 2022-05-04 13:45 | NUR ---
7CC OF AIR REMOVED FROM TR BAND, BLEEDING NOTED. 2CC OF AIR REINFLATED. NO BLEEDING NOTED. VSS. WILL CONTINUE TO MONITOR
--- NOTE | 2022-05-04 14:55 | NUR ---
TR BAND FULLY DEFLATED. R FOREARM REMAINS TENDER, BRUISING NOTED. NO BLEEDING NOTED. VSS.
--- NOTE | 2022-05-04 15:13 | NUR ---
PT AND S/O VERBALIZES UNDERSTANDING WRITTEN INSTRUCTIONS. VSS.
--- NOTE | 2022-05-04 15:39 | NUR ---
TR BAND REMOVED. DOT DRESSING IN PLACE. NO BLEEDING NOTED. HEMATOMA REMAINS SOFT AND TENDER. DR OVALLE TO ROOM DISCUSSING PLAN OF CARE. SPLINT AND PRESSURE DSG APPLIED WITH SLING. PT AND S/O VERBALIZES UNDERSTANDING INSTRUCTIONS TO REMOVE PRESSURE BANDAGE WHEN THEY GET HOME.
--- NOTE | 2022-05-04 16:15 | NUR ---
PT IV DC'D. CATH INTACT. PT DRESSES SELF WITHOUT DIFF. NADN. PT DC TO HOME VIA S/O BY MIESHA.
== END 2022-05-04 16:20 | disposition home or self-care (01) ==
LOC: MHTC 08:52
DX: R07.89 Other chest pain (principal); R06.02 Shortness of breath; Z88.5 Allergy status to narcotic agent; Z88.8 Allergy status to other drugs, medicaments and biological substances; I10 Essential (primary) hypertension
CPT/HCPCS: 76937; 93454; 99152; 99153; A9270; C1769; C1887; C1894; J0360; J1644; J2250; J3010; J7030; J7050; Q9967

== ENCOUNTER 2022-05-27 15:15 | Emergency (ER) | payer MEDICARE, OTHER ==
[~2022-05-27] VITALS: Ht 167.6 cm; Wt 81.7 kg
== END 2022-05-27 17:20 | disposition home or self-care (01) ==
LOC: ER 15:15
DX: I46.9 Cardiac arrest, cause unspecified (principal); R06.03 Acute respiratory distress; Z88.5 Allergy status to narcotic agent; Z88.8 Allergy status to other drugs, medicaments and biological substances; Z79.82 Long term (current) use of aspirin; Z79.899 Other long term (current) drug therapy; Z86.73 Personal history of transient ischemic attack (TIA), and cerebral infarction without residual deficits
CPT/HCPCS: J2060